=== PATIENT | female | born 1970 | race Caucasian/White ===

== ENCOUNTER 2019-03-31 11:35 | Emergency (ER) | payer BC ==
--- OUTSIDE RECORDS SUMMARY | 2019-03-31 11:41 | XMS REPORT | Continuity of Care Document ---
:1970 External Reference #:[id number] Author Name MARIBEL Parmar (transmitted by agent of provider Adalberto Gunn) Address [address] [place] [address] Care Team Providers Name Role Phone Therese Steen MD - Obstetrics & Care Team Information Hydraulic Design Engineer Gynecology Paul Lal III, MD - Surgery Care Team Information Hydraulic Design Engineer [phone] Concepción Mckinley MD - Care Team Information Hydraulic Design Engineer [phone] Dermatology Problems Active Problems Provider Date Cellulitis Onset: 07/29/2013 Disorder of breast Onset: 07/29/2013 Social History Type Date Description Comments Sex Unknown Tobacco Use Start: Unknown End: Former Cigarette Smoker Unknown Smoking Status Reviewed: 08/23/18 Former Cigarette Smoker ETOH Use Rarely consumes alcohol Recreational Drug Use Never Used Drugs Exercise Type/Frequency Does not exercise Tattoo/Piercing Pierced ears Tattoo/Piercing Tattoo right shoulder Allergies, Adverse Reactions, Alerts Description No Known Drug Allergies Medications Description No Active Medications Immunizations CPT Code Status Date Vaccine Lot # [id number] Refused 02/09/2018 Influenza Virus Vaccine, Quadrivalent, Split, Im Use 6-35mo Vital Signs Date Vital Result Comment 03/01/2019 8:12am Height 69.9 inches 5'9.90" Weight 229.56 lb BP Systolic Sitting 128 mmHg BP Diastolic Sitting 60 mmHg Respiratory Rate 12 /min Body Temperature 98.8 F BMI (Body Mass Index) 33.0 kg/m2 08/17/2018 3:25pm Weight 231.00 lb BP Systolic Sitting 130 mmHg BP Diastolic Sitting 70 mmHg Results Description No Information Available Procedures Date Code Description Status 03/04/2018 09722099 Mammogram Completed Medical Devices Description No Information Available Encounters Description No Information Available Assessments Date Code Description Provider 03/01/2019 Z00.01 Encounter for general adult medical examination with MARIBEL Parmar abnormal findings 03/01/2019 Z12.31 Encounter for screening mammogram for malignant MARIBEL Parmar neoplasm of breast 03/01/2019 D48.5 Neoplasm of uncertain behavior of skin MARIBEL Parmar 03/01/2019 R10.9 Unspecified abdominal pain MARIBEL Parmar Plan of Treatment Future Appointment(s):03/05/2020 8:15 am - MARIBEL Parmar at [facility]/2018 - Manuela Velasquez PAZ00.01 Encounter for general adult medical examination with abnormal findingsNew Labs:Basic Metabolic Panel, Ordered: 03/01/19Liver Function Panel, Ordered: 03/01/19Lipid Profile (Trig/Chol/HDL), Ordered: Z12.31 Encounter for screening mammogram for malignant neoplasm of breastNew Xrays:Mammogram Screening Roc, Scheduled: 03/09/19D48.5 Neoplasm of uncertain behavior of skinReferral:Concepción Mckinley MD, LuqbhrohfmlM67.9 Unspecified abdominal painAllNew Medication:No Active Medications - Functional Status Description No Information Available Mental Status Description No Information Available Referrals Refer to Dr Reason for Referral Status Appt Date Concepción Mckinley MD Please arrive at the time listed on Scheduled your referral, this is your check in time. Please be sure to bring your insurance cards & photo ID as well as any copayment associated with the insurance. If you have any questions or concerns, please feel free to contact Sharron @ [phone]. Thank you. [address] [facility] [address] [place] [address] [phone]
[2019-03-31 11:46] VITALS: BP 115/73
--- NOTE | 2019-03-31 11:55 | UC ---
Throat Pain/Nasal Chato HPI - HPI Summary HPI Summary: Pt presents with c/o fatigue, nasal congestion, sinus pressure, pain and occasional dizziness when standing form sitting or laying down position X 4 days. - History of Current Complaint Chief Complaint: UCGeneralIllness Stated Complaint: SINUS CONCERN Time Seen by Provider: 03/31/19 11:41 Hx Obtained From: Patient Hx Last Menstrual Period: 02/04/16 ?: No Onset/Duration: Gradual Onset, Lasting Days Severity: Moderate Pain Intensity: 6 Cough: None Associated Signs & Symptoms: Positive: Sinus Discomfort - Epiglottits Risk Factors Epiglottis Risk Factors: Negative - Allergies/Home Medications Allergies/Adverse Reactions: Allergies Allergy/AdvReac Type Severity Reaction Status Date / Time No Known Allergies Allergy Verified 03/31/19 11:46 PMH/Surg Hx/FS Hx/Imm Hx Previously Healthy: Yes - Surgical History Surgical History: None - Family History Known Family History: Positive: Cardiac Disease, Hypertension, Diabetes, Other - dad had bariatric surgery - Social History Occupation: Employed Full-time Lives: With Family Alcohol Use: Rare Substance Use Type: None Smoking Status (MU): Former Smoker Type: Cigarettes Amount Used/How Often: < 1 PPD Length of Time of Smoking/Using Tobacco: 30 Years Have You Smoked in the Last Year: Yes When Did the Patient Quit Smoking/Using Tobacco: May 2017 Household Exposure Type: Cigarettes - Immunization History Most Recent Influenza Vaccination: Not the 2014/2015 Season Review of Systems All Other Systems Reviewed And Are Negative: Yes Constitutional: Positive: Chills, Fatigue Skin: Positive: Negative Eyes: Positive: Negative ENT: Positive: Sinus Congestion, Sinus Pain/Tenderness Respiratory: Positive: Negative Cardiovascular: Positive: Negative Gastrointestinal: Positive: Negative Genitourinary: Positive: Negative Motor: Positive: Negative Neurovascular: Positive: Negative Musculoskeletal: Positive: Negative Neurological: Positive: Headache Psychological: Positive: Negative Is Patient Immunocompromised?: No Physical Exam Triage Information Reviewed: Yes Appearance: Ill-Appearing Vital Signs: Initial Vital Signs Temp 98.2 F 03/31/19 11:41 Pulse 82 03/31/19 11:41 Resp 18 03/31/19 11:41 BP 115/73 03/31/19 11:41 Pulse Ox 99 03/31/19 11:41 Vital Signs Reviewed: Yes Eye Exam: Normal ENT: Positive: Nasal congestion, TM bulging, Sinus tenderness Dental Exam: Normal Neck exam: Normal Respiratory Exam: Normal Cardiovascular Exam: Normal Musculoskeletal Exam: Normal Neurological Exam: Normal Psychological Exam: Normal Skin Exam: Normal Throat Pain/Nasal Course/Dx - Differential Dx/Diagnosis Differential Diagnosis/HQI/PQRI: Otitis Media, Sinusitis, URI Provider Diagnosis: Sinusitis Discharge ED - Sign-Out/Discharge Documenting (check all that apply): Patient Departure All imaging exams completed and their final reports reviewed: No Studies - Discharge Plan Condition: Stable Disposition: HOME Prescriptions: Amoxicillin/Clavulanate TAB* [Augmentin TAB 875*] 875 mg PO Q12H #20 tab Patient Education Materials: Sinusitis (ED) Referrals: Manuela Velasquez PA [Primary Care Provider] - If Needed Additional Instructions: Please continue to use the Mucinex-D you have at home for symptoms management. If your symptoms do not improve or they worsen, please seek care at your PCP or the closest health facility. - Billing Disposition and Condition Condition: STABLE Disposition: Home
== END 2019-03-31 12:02 | disposition home or self-care (01) ==
LOC: UCCORT 11:35
DX: J32.9 Chronic sinusitis, unspecified (principal); R53.83 Other fatigue; R42 Dizziness and giddiness; Z87.891 Personal history of nicotine dependence
CPT/HCPCS: 99212; G0463

== ENCOUNTER 2019-04-04 15:45 | Emergency (ER) | payer BC ==
[2019-04-04 16:13] VITALS: BP 116/80
--- NOTE | 2019-04-04 16:43 | UC ---
FLU HPI - HPI Summary HPI Summary: 49 year old female with no pmh, last seen here 03/31 with sinus pressure, diagnosed with sinus infections, started on augmentin x 10 days. Decreased sinus pressure/ HOLT however now with body aches, fatigue, sore throat, cough, productive at times. + chills, no fever. + hoarse voice at times. no other recent illnesses. no TOB use x 2 years, prior 1/2 PPD for decades. - History of Current Complaint Chief Complaint: UCRespiratory Stated Complaint: FULL HEAD,HOLT,LEFT EAR COMP,ST,COUGH,CONGESTION Time Seen by Provider: 04/04/19 16:35 Hx Obtained From: Patient Hx Last Menstrual Period: 2017,UTERINE ABLATION Severity Initially: Moderate Pain Intensity: 6 Pain Scale Used: 0-10 Numeric Associated Signs & Symptoms: Positive: Cough, Sore Throat, Nasal Congestion Related Hx: Smoking - in past - Allergy/Home Medications Allergies/Adverse Reactions: Allergies Allergy/AdvReac Type Severity Reaction Status Date / Time No Known Allergies Allergy Verified 04/04/19 16:04 Home Medications: Home Medications Guaifenesin/Pseudo 600/60(NF) [Mucinex D 600/60 (NF)] 1 tab PO BID PRN 04/04/19 [History Confirmed 04/04/19] PMH/Surg Hx/FS Hx/Imm Hx Previously Healthy: Yes - Surgical History Surgical History: None - Family History Known Family History: Positive: Cardiac Disease, Hypertension, Diabetes, Other - dad had bariatric surgery - Social History Occupation: Employed Full-time Alcohol Use: Rare Substance Use Type: None Smoking Status (MU): Former Smoker Type: Cigarettes Amount Used/How Often: < 1 PPD Length of Time of Smoking/Using Tobacco: 30 Years Have You Smoked in the Last Year: Yes When Did the Patient Quit Smoking/Using Tobacco: May 2017 Household Exposure Type: Cigarettes - Immunization History Most Recent Influenza Vaccination: Not the 2014/2015 Season Review of Systems All Other Systems Reviewed And Are Negative: Yes Constitutional: Positive: Fatigue ENT: Positive: Sore Throat, Sinus Congestion Respiratory: Positive: Cough Is Patient Immunocompromised?: No Physical Exam Triage Information Reviewed: Yes Appearance: Well-Appearing, No Pain Distress, Well-Nourished Vital Signs: Initial Vital Signs Temp 97.8 F 04/04/19 16:05 Pulse 75 04/04/19 16:05 Resp 17 04/04/19 16:05 BP 116/80 04/04/19 16:05 Pulse Ox 99 04/04/19 16:05 Vital Signs Reviewed: Yes Eyes: Positive: Conjunctiva Clear ENT: Positive: Hearing grossly normal, Pharynx normal, TMs normal, Uvula midline. Negative: Pharyngeal erythema, TM bulging, TM dull, TM red, Tonsillar swelling, Tonsillar exudate, Sinus tenderness Neck: Positive: Supple, Nontender, No Lymphadenopathy. Negative: Nuchal Rigidity, Enlarged Nodes @ Respiratory: Positive: Chest non-tender, Lungs clear, Normal breath sounds, No respiratory distress, No accessory muscle use. Negative: Respiratory distress, Crackles, Rhonchi, Stridor, Wheezing Cardiovascular: Positive: RRR, No Murmur Psychological Exam: Normal Skin Exam: Normal Flu Course/Dx - Course Course Of Treatment: LIkely superimposed viral illness due to new symptoms: - Continue antibiotics as directed for full 10 day course - Increase fluids - Humidifer at night for symptoms - Tylenol/ Motrin as needed for pain, fever - Steroid taper to help with cough, breathing - GO to ER with fever > 102, decreased/ difficulty breathing. - Tessalon Perles for coughing as needed - Differential Dx/Diagnosis Differential Diagnosis/HQI/PQRI: Bronchitis Provider Diagnosis: Bronchitis Discharge ED - Sign-Out/Discharge Documenting (check all that apply): Patient Departure All imaging exams completed and their final reports reviewed: No Studies - Discharge Plan Condition: Good Disposition: HOME Prescriptions: Benzonatate CAP* [Tessalon 100 MG CAP*] 100 mg PO TID PRN #30 cap PRN Reason: Cough methylPREDNISolone [Medrol] 4 mg PO .SEE TAP #1 tab.ds.pk Patient Education Materials: Upper Respiratory Infection (ED), Acute Bronchitis (ED) Referrals: Manuela Velasquez PA [Primary Care Provider] - Additional Instructions: LIkely superimposed viral illness due to new symptoms: - Continue antibiotics as directed for full 10 day course - Increase fluids - Humidifer at night for symptoms - Tylenol/ Motrin as needed for pain, fever - Steroid taper to help with cough, breathing - GO to ER with fever > 102, decreased/ difficulty breathing. - Tessalon Perles for coughing as needed - Billing Disposition and Condition Condition: GOOD Disposition: Home
== END 2019-04-04 17:15 | disposition home or self-care (01) ==
LOC: UCCORT 15:45
DX: J40 Bronchitis, not specified as acute or chronic (principal); Z87.891 Personal history of nicotine dependence
CPT/HCPCS: 99212; G0463

== ENCOUNTER 2019-08-08 07:41 | Emergency (ER) | payer BC ==
[2019-08-08 07:58] VITALS: BP 143/68
--- NOTE | 2019-08-08 08:14 | UC ---
Throat Pain/Nasal Chato HPI - HPI Summary HPI Summary: Pt present with c/o cough, nasal congestion, sinus pressure and pain X 1 week. Pt has been taking OTC mucinex D and using tessalon perles as prescribed by MD from telemedicine - History of Current Complaint Chief Complaint: UCGeneralIllness Stated Complaint: SINUS PRESSURE,COUGH Time Seen by Provider: 08/08/19 08:00 Hx Obtained From: Patient Hx Last Menstrual Period: 07/06/19 ?: No Onset/Duration: Gradual Onset, Lasting Days, Still Present, Worse Since - onset Severity: Moderate Pain Intensity: 0 Cough: Nonproductive Associated Signs & Symptoms: Positive: Sinus Discomfort Related History: Smoking - hx of smoking - Epiglottits Risk Factors Epiglottis Risk Factors: Negative - Allergies/Home Medications Allergies/Adverse Reactions: Allergies Allergy/AdvReac Type Severity Reaction Status Date / Time No Known Allergies Allergy Verified 08/08/19 07:52 Home Medications: Home Medications Benzonatate CAP* [Tessalon 100 MG CAP*] 100 mg PO TID PRN #30 cap 04/04/19 [Rx Confirmed 08/08/19] Amoxicillin PO (*) [Amoxicillin 875 MG (*)] 875 mg PO Q12H #20 tab 08/08/19 [Rx] Guaifenesin/Pseudo 600/60(NF) [Mucinex D 600/60 (NF)] 1 dose PO ONCE 08/08/19 [ History Confirmed 08/08/19] predniSONE 10 mg TAB [Deltasone 10 MG TAB*] 30 mg PO DAILY #18 tab 08/08/19 [Rx] PMH/Surg Hx/FS Hx/Imm Hx Previously Healthy: Yes Respiratory History: Asthma - Surgical History Surgical History: Yes Surgery Procedure, Year, and Place: D&C Jun 2019. uterine ablation 2017. bilateral fillopian tube removal - Family History Known Family History: Positive: Cardiac Disease, Hypertension, Diabetes, Other - dad had bariatric surgery - Social History Occupation: Employed Full-time Lives: With Family Alcohol Use: Rare Substance Use Type: None Smoking Status (MU): Former Smoker Type: Cigarettes Amount Used/How Often: < 1 PPD Length of Time of Smoking/Using Tobacco: 30 Years Have You Smoked in the Last Year: Yes When Did the Patient Quit Smoking/Using Tobacco: May 2017 Household Exposure Type: Cigarettes - Immunization History Most Recent Influenza Vaccination: Not the Vaccination Up to Date: Yes Review of Systems All Other Systems Reviewed And Are Negative: Yes Constitutional: Positive: Chills, Fatigue Skin: Positive: Negative Eyes: Positive: Negative ENT: Positive: Sore Throat, Sinus Congestion, Sinus Pain/Tenderness Respiratory: Positive: Cough Cardiovascular: Positive: Negative Gastrointestinal: Positive: Negative Genitourinary: Positive: Negative Motor: Positive: Negative Neurovascular: Positive: Negative Musculoskeletal: Positive: Myalgia Neurological/Mental Status: Positive: Headache Psychological: Positive: Negative Is Patient Immunocompromised?: No Physical Exam Triage Information Reviewed: Yes Appearance: Ill-Appearing Vital Signs: Initial Vital Signs Temp 98.8 F 08/08/19 07:53 Pulse 63 08/08/19 07:53 Resp 16 08/08/19 07:53 BP 143/68 08/08/19 07:53 Pulse Ox 99 08/08/19 07:53 Vital Signs Reviewed: Yes Eye Exam: Normal ENT: Positive: Nasal congestion, Sinus tenderness Dental Exam: Normal Neck exam: Normal Respiratory Exam: Normal Cardiovascular Exam: Normal Musculoskeletal Exam: Normal Neurological Exam: Normal Psychological Exam: Normal Skin Exam: Normal Throat Pain/Nasal Course/Dx - Differential Dx/Diagnosis Differential Diagnosis/HQI/PQRI: Influenza, Sinusitis, URI Provider Diagnosis: Sinusitis Discharge ED - Sign-Out/Discharge Documenting (check all that apply): Patient Departure All imaging exams completed and their final reports reviewed: No Studies - Discharge Plan Condition: Stable Disposition: HOME Prescriptions: Amoxicillin PO (*) [Amoxicillin 875 MG (*)] 875 mg PO Q12H #20 tab predniSONE 10 mg TAB [Deltasone 10 MG TAB*] 30 mg PO DAILY #18 tab Patient Education Materials: Sinusitis (ED) Forms: *Work Release Referrals: Manuela Velasquez PA [Primary Care Provider] - If Needed - Billing Disposition and Condition Condition: STABLE Disposition: Home - Attestation Statements Provider Attestation: This patient was not seen by me. I was available for consult. Chart reviewed. AARON
== END 2019-08-08 08:22 | disposition home or self-care (01) ==
LOC: UCCORT 07:41
DX: J32.9 Chronic sinusitis, unspecified (principal); J02.9 Acute pharyngitis, unspecified; M79.10 Myalgia, unspecified site; R05 Cough; J45.909 Unspecified asthma, uncomplicated; Z79.52 Long term (current) use of systemic steroids; Z87.891 Personal history of nicotine dependence
CPT/HCPCS: 99212; G0463